=== PATIENT | male | born 1975 | race Caucasian/White ===

== ENCOUNTER 2019-11-26 12:12 | Outpatient (CLI) | payer BC, SELFPAY ==
[2019-11-27 14:11] LABS: SARS-CoV-2 RNA PCR Positive
== END 2019-11-26 12:13 | disposition home or self-care (01) ==
LOC: CHSLAB 12:15
PROVIDERS: PCP Internal Medicine; Visit Provider Internal Medicine
DX: U07.1 COVID-19 (principal)
CPT/HCPCS: 87635; C9803; U0003

== ENCOUNTER 2019-12-10 12:07 | Outpatient (CLI) | payer BC, SELFPAY ==
[2019-12-11 12:44] LABS: SARS-CoV-2 RNA PCR Positive
== END 2019-12-10 12:08 | disposition home or self-care (01) ==
LOC: CHSLAB 12:09
PROVIDERS: PCP Internal Medicine; Visit Provider Internal Medicine
DX: U07.1 COVID-19 (principal)
CPT/HCPCS: 87635; C9803; U0003

== ENCOUNTER 2020-01-16 07:26 | Outpatient (CLI) | payer BC, SELFPAY ==
--- NOTE | ~2020-01-16 | CT_ITS ---
EXAMINATION: CT abdomen pelvis w con DATE: 01/16/2020 08:02 INDICATION: Lower abdominal pain for 2 weeks TECHNIQUE: Computed tomography (CT) of the abdomen and pelvis was performed with 100 cc Omnipaque 350 intravenous contrast. The dose-length product was 377.77 mGy-cm. Automated exposure control and iter ative reconstruction technique were employed. COMPARISON: CT dated 05/10/2017 FINDINGS: Lung bases are unremarkable. Heart size normal. No significant pleural or pericardial effus ion. There are small hypodense lesions of the liver, most likely benign cysts or hemangiomas. The spl een, pancreas, adrenal glands and right kidney are unremarkable. There is a subtle hypodense lesion o f the left kidney which is stable, likely benign cyst. There is a small nonobstructing left renal sto ne measuring 2-3 mm. There is moderate retained fecal material in the distal colon. Distal colonic wa ll thickening. Cannot exclude colitis. No free air or free fluid. No significant vascular abnormality . No lymphadenopathy. IMPRESSION: 1. Mild distal colonic wall thickening. Consider colitis in the appropriate clinical setting. 2: Nonobstructing 2-3 mm left renal stone. Reviewed, dictated and finalized at location A. NCIAL SERVICES MANAGER IMPRESSION: 1. Mild distal colonic wall thickening. Consider colitis in the appropriate cli nical setting. 2: Nonobstructing 2-3 mm left renal stone.
== END 2020-01-16 07:27 | disposition home or self-care (01) ==
LOC: CHSIMG 07:27
PROVIDERS: PCP Internal Medicine; Visit Provider Internal Medicine
DX: R10.32 Left lower quadrant pain (principal); R19.7 Diarrhea, unspecified
CPT/HCPCS: 74177; Q9965

== ENCOUNTER 2020-03-08 06:13 | Outpatient (CLI) | payer BC, SELFPAY ==
[2020-03-09 14:05] LABS: SARS-CoV-2 RNA PCR Negative
== END 2020-03-08 06:14 | disposition home or self-care (01) ==
PROVIDERS: PCP Internal Medicine; Visit Provider Internal Medicine Gastroenterology
DX: Z20.822 Contact with and (suspected) exposure to COVID-19 (principal)
CPT/HCPCS: C9803; U0003; U0005

== ENCOUNTER 2020-03-11 02:48 | Day surgery (SDC) | payer BC, SELFPAY ==
[2020-03-04 13:44] VITALS: BMI 23.8
--- NOTE | 2020-03-09 15:35 | P.PNAN_ITS ---
Anes - Initial Pre Proc Eval Procedure: Operation Date: 03/11/20 07:30 Proposed Procedures p Esophagogastroduodenoscopy & Colonoscopy - Raz Garcia MD Date/Time: 03/09/20 15:35 Surgeon: Raz Garcia MD Pre Op Diagnosis: IBS, Abn Findings on Imaging, GERD Patient Data Age: 44 Gender: M Height: 1.88 m Weight: 84 kg Allergies Allergy/AdvReac Type Severity Reaction Status Date / Time No Known Allergies Allergy Verified 03/11/20 06:22 Home Medications Medication Instructions Recorded Confirmed Type atorvastatin 20 mg tablet 20 mg PO DAILY 03/01/20 03/11/20 History buspirone 10 mg tablet 10 mg PO BID 03/01/20 03/11/20 History famotidine 20 mg tablet 20 mg PO BID tablet 03/01/20 03/11/20 History hyoscyamine sulfate 0.125 mg tablet 0.125 mg PO QID PRN 03/01/20 03/11/20 History Patient hx anesthesia problems: none Family hx anesthesia problems: none [facility] Past Medical History Medical History (Updated 03/09/20 @ 15:35 by Louie Carroll DO) Abnormal CT scan, colon Anxiety GERD (gastroesophageal reflux disease) Hyperlipidemia Irritable bowel syndrome with diarrhea Social History Social History (Updated 03/01/20 @ 15:02 by Tamhina King [facility]) Smoking status: Former smoker Alcohol intake: current Drinks per week: 3 Substance use: never Substance use type: marijuana Living arrangements: with family Gender identity (if verbalized by the patient): Male Spiritual care concerns: No Anes - Eval Final PreProcedure Day of Procedure 03/09/20 15:35 Patient weight: normal Heart: regular rate and rhythm Lungs: clear to auscultation and normal air movement Airway: Mallampati scale class II Neurological: alert and oriented Last oral intake: >/= 8 hours ASA classification: III Emergent: no Anesthetic plan: proceed Anesthesia type and monitoring: general GIVS and standard monitoring Informed Consent: The patient's anesthetic plan and its attendant risks and benefits were discussed with the patient/family/POA. Questions were solicited and answers provided to the satisfaction of the patient/family/POA.
[2020-03-11 06:23] VITALS: BP 135/94; PULSE 62; RESP 18; TEMP 36.4; O2SAT 100; BMI 22.6
[2020-03-11] MEDS: LACTATED RINGERS 1,000 ML 150 ML IV CONT (06:33)
--- NOTE | 2020-03-11 07:37 | WPDHPUPDATE1 ---
History and Physical Update Update Date/Time: 03/11/20 07:37 History and Physical has been reviewed, including an updated exam of the patient. There are NO changes in the patient's condition. Risks, benefits, and alternatives have been discussed and questions answered. Patient agrees to proceed with procedure.
[2020-03-11] MEDS: BENZOCAINE (*SP) 60 ML SPRAY CAN (HURRICAINE) 1 SPRAY MUCOUS MEM (07:40)
[2020-03-11 08:00] VITALS: BP 113/66; PULSE 55; RESP 22; O2SAT 99
--- NOTE | 2020-03-11 08:00 | SUR.OPER ---
EGD START 740, END 743 COLONOSCOPY START 747, END 756
[2020-03-11 08:10] VITALS: BP 124/89; PULSE 63; RESP 24; O2SAT 100
== END 2020-03-11 08:34 | disposition home or self-care (01) ==
PROVIDERS: PCP Internal Medicine; Visit Provider Internal Medicine Gastroenterology
PROC: 0DJ08ZZ Inspection of Upper Intestinal Tract, Via Natural or Artificial Opening Endoscopic (ICD-10-PCS; CPT 43235; principal; 2020-03-11 07:30)
DX: K58.9 Irritable bowel syndrome, unspecified (principal); K30 Functional dyspepsia; R14.3 Flatulence; K64.8 Other hemorrhoids; K21.9 Gastro-esophageal reflux disease without esophagitis; F41.9 Anxiety disorder, unspecified; E78.5 Hyperlipidemia, unspecified; R93.5 Abnormal findings on diagnostic imaging of other abdominal regions, including retroperitoneum; Z87.891 Personal history of nicotine dependence; F12.90 Cannabis use, unspecified, uncomplicated; R93.3 Abnormal findings on diagnostic imaging of other parts of digestive tract
CPT/HCPCS: 43239; 45380; 88305; J2001; J2704; J7120

== ENCOUNTER 2020-04-26 23:25 | Emergency (ER) | payer BC, SELFPAY ==
--- NOTE | ~2020-04-26 | XR_ITS ---
EXAMINATION: XR chest 2V DATE: 04/27/2020 01:00 INDICATION: Dyspnea. TECHNIQUE: Frontal and lateral views of the chest were obtained on 3 radiographs. COMPARISON: Chest 2 views 03/11/2019, CT abdomen and pelvis 01/16/2020 FINDINGS: The chest demonstrates clear lungs without pneumonia, pleural effusion, or pneumothorax. Th e heart size is normal. There is mild chronic anterior wedging of multiple vertebral bodies. IMPRESSION: 1. No acute cardiopulmonary disease. Reviewed, dictated and finalized at location A.
[2020-04-26 23:25] VITALS: BP 160/102; PULSE 83; RESP 20; TEMP 36.3; O2SAT 98
--- NOTE | 2020-04-26 23:32 | ECG_ITS ---
Measurements Intervals [place] Rate: 87 P: 76 ID: 128 QRS: 74 QRSD: 102 T: 47 QT: 345 QTc: 415 Interpretive Statements SINUS RHYTHM VOLTAGE CRITERIA FOR LVH MINIMAL Q WAVES- INF/LAT LEADS BORDERLINE ST-T WAVE ABNORMALITY- DIFFUSE LEADS BASELINE ARTIFACT- I, II, III, AVR, AVL, AVF, V1, V3-V5 BORDERLINE ECG Electronically Signed On 04-27-2020 7:16:35 CDT by Lj Curry D.O.
--- NOTE | 2020-04-26 23:34 | ED.SOB ---
HPI - SOB/Dyspnea General Chief Complaint: Shortness of Breath/Dyspnea Stated Complaint: Shortness of Breath Time Seen by Provider: 04/26/20 23:34 History of Present Illness HPI Narrative: 44-year-old man with a history of HLD, IBS and COPD comes in today complaining of discomfort in his chest and shortness of breath when he lies down at night time. States he has been having able to sleep through the night for several days. He states his symptoms got worse after he started taking steroids for his back pain. He also complains of nausea, and feeling sweaty. He is also diarrhea. He denies daytime shortness of breath, fever, chills, cough or cold symptoms, and rash. A finger oximeter at home showed 90% while lying down. MD elicited complaint: shortness of breath, chest pain and anxiety Pertinent past history: COPD Onset (ago): day(s) (3-4) Timing: intermittent Severity: moderate Exacerbating factors: lying flat Relieving factors: nothing Known history of: COPD Associated symptoms: chest pain, diaphoresis and nausea/vomiting Related Data Home oxygen amount: none Home Medications Medication Instructions Recorded Confirmed atorvastatin 20 mg tablet 20 mg PO DAILY 03/01/20 04/26/20 Allergies Allergy/AdvReac Type Severity Reaction Status Date / Time No Known Allergies Allergy Verified 03/11/20 06:22 Review of Systems Constitutional: Constitutional: Denies chills and Denies fever(s) Eyes: Eyes: Denies change in vision and Denies photophobia ENT: Denies dysphagia, Denies nasal congestion and Denies sore throat Cardiovascular: Cardiovascular: Reports chest pain and Denies radiating jaw, neck or arm pain Respiratory: Respiratory: Denies chest congestion, Denies cough, Reports dyspnea and Denies wheezing Gastrointestinal: Gastrointestinal: Denies abdominal pain, Reports nausea and Denies vomiting Genitourinary: Genitourinary: Denies dysuria and Denies urinary frequency Musculoskeletal: Musculoskeletal: Denies arthralgias and Denies joint swelling Integumentary/Breasts: Skin/Breast: Denies pruritus, Denies erythema and Denies rash Neurologic: Denies vertigo, Denies dizziness and Denies syncope Hematologic/Lymphatic: Hematologic/Lymphatic: Denies easy bleeding and Denies easy bruising Allergic/Immunologic: Allergic/Immunologic: Denies lip swelling and Denies throat swelling [facility] Past Medical History Medical History Abnormal CT scan, colon Anxiety GERD (gastroesophageal reflux disease) Hyperlipidemia Irritable bowel syndrome with diarrhea Social History Social History Smoking status: Former smoker Alcohol intake: current Drinks per week: 3 Substance use: never Substance use type: marijuana Gender identity (if verbalized by the patient): Male Spiritual care concerns: No Exam Const: General: healthy appearing and alert Orientation/consciousness: patient oriented x3 Limitations: no limitations Other: anxious HENMT: Head: normal to inspection Ears: external ears normal and TM's normal bilaterally General nose exam: Normal nares present Face and sinus: normal facial exam Mouth: Yes moist mucous membranes Throat: posterior oropharynx normal Eyes: Conjunctivae: conjunctivae normal Pupils: Equal, round and reactive pupils present EOM: EOMs intact bilaterally Resp: Effort & Inspection: normal respiratory effort and not labored Auscultation: clear to auscultation bilaterally, no rales, no rhonchi and no wheezes Cardio: Rate: regular rate Rhythm: regular rhythm Heart sounds: no murmurs GI: GI Palp: No abdominal tenderness, Yes Soft to palpation and No Rigid due to palpation Skin: General skin exam: normal color, no jaundice and no pallor Rashes: no rashes Neuro: General: patient oriented x3, moves all extremities, no focal motor deficits and CN's II-XI intact bilaterally Spe
[2020-04-26 23:44] VITALS: PULSE 82
[2020-04-27 00:01] VITALS: BP 179/94; PULSE 84; RESP 20; O2SAT 99
[2020-04-27 00:06] LABS: Base Excess ABG 0.9 mmol/L (0-2); Carboxyhemoglobin 0.3 % (0-1.5); HCO3 ABG 22.8 mmol/L (23-29); Methemoglobin ABG 0.2 % (0-1.5); Oxygen Content ABG 21.6 %vol (16.0-22.0); Oxygen Saturation ABG 98.1 % (95-97); Oxyhemoglobin 97.6 % (94-100); PCO2 ABG 29.7 mmHg (35-45); PO2 ABG 102.3 mmHg (80-90); Reduced Hemoglobin 1.9 % (0-1.5); Total Hemoglobin 15.7 g/dL
[2020-04-27 00:11] LABS: Basophils Absolute Auto 0.03 K/mm3 (0.00-0.10); Basophils Percent Auto 0.3 % (0.0-1.0); Eosinophils Absolute Auto 0.03 K/mm3 (0.02-0.50); Eosinophils Percent Auto 0.3 % (1.0-6.0); Hematocrit 45.2 % (40.0-54.0); Hemoglobin 15.3 g/dL (14.0-18.0); Immature Granulocyte Absolute 0.03 K/mm3 (0.00-0.00); Immature Granulocyte Percent A 0.3 % (0.0-0.0); Lymphocytes Absolute Auto 2.54 K/mm3 (1.10-4.50); Lymphocytes Percent Auto 27.3 % (18.0-42.0); Mean Corpuscular HGB Conc 33.8 g/dL (32.0-36.0); Mean Corpuscular Hemoglobin 29.5 pg (27.0-31.0); Mean Corpuscular Volume 87.3 fL (78.0-102.0); Mean Platelet Volume 9.5 fl (8.7-11.0); Monocytes Absolute Auto 0.72 K/mm3 (0.10-0.90); Monocytes Percent Auto 7.7 % (2.0-11.0); Neutrophils Percent Auto 64.1 % (50.0-70.0); Platelet Count Result 277 K/mm3 (150-420); Red Blood Count 5.18 M/mm3 (4.70-6.10); Red Cell Distribution Width 11.9 % (11.6-14.4); White Blood Count 9.3 K/mm3 (4.8-10.8)
[2020-04-27 00:13] LABS: Device ROOM AIR; Modified Allen's Test Pass; Site Drawn RIGHT RADIAL
[2020-04-27 00:27] LABS: Add Urine Microscopic? YES; Appearance Urine Clear (Clear); Bilirubin Urine Negative (Negative); Blood Urine Negative (Negative); Color Urine Yellow (Yellow); Glucose Urine UA Negative (Negative); Ketones Urine Trace (Negative); Leukocyte Esterase Ur Negative LEU/UL (Negative); Nitrate Urine Negative (Negative); Protein Urine Negative (Negative); Specific Grav Ur 1.025 (1.010-1.020); Urobilinogen Urine 0.2 mg/dL (0.2-1.0)
[2020-04-27 00:27] LABS: BNP 6.7 pg/mL (0-100)
[2020-04-27 00:28] LABS: Alanine Aminotransferase 33 U/L (16-63); Alkaline Phosphatase 91 U/L (46-116); Anion Gap 11 mmol/L (8-16); Aspartate Amino Transferase 13 U/L (15-37); Blood Urea Nitrogen 10 mg/dL (7-18); Calcium 9.1 mg/dL (8.5-10.1); Carbon Dioxide 26 mmol/L (21-32); Chloride 99 mmol/L (98-108); Estimated CRCL calculation 93 ml/min; Estimated Glomerular Filt Rate > 60; Glucose 124 mg/dL (70-99); Osmolality Calculated 282 mOsm/kg (285-295); Potassium 3.2 mmol/L (3.5-5.1); Sodium 136 mmol/L (136-145); Total Protein 7.1 g/dL (6.4-8.2)
[2020-04-27 00:33] LABS: Bacteria Urine Trace /hpf; Mucus Urine Few /lpf; RBC Urine 0-2 /hpf (0-2); Squamous Epithelial Cell Urine None seen /hpf (Few); WBC Urine 0-3 /hpf (0-3)
[2020-04-27 00:34] LABS: Amphetamine Screen Urine Negative (Negative); Barbiturate Screen Urine Negative (Negative); Benzodiazepines Screen Urine Negative (Negative); Cannabinoid Screen Urine Positive (Negative); Cocaine Screen Urine Negative (Negative); Methadone Screen Urine Negative (Negative); Opiate Screen Urine Negative (Negative); Phencyclidine Screen Urine Negative (Negative)
[2020-04-27 00:34] LABS: D Dimer 0.19 mg/L (0.19-0.50)
[2020-04-27 00:36] VITALS: BP 165/99; PULSE 61; RESP 20; TEMP 36.3; O2SAT 97
[2020-04-27 01:05] LABS: Thyroid Stimulating Hormone Reflex 0.61 u/IU/mL (0.36-3.74)
[2020-04-27 17:50] LABS: Free T4 Free Thyroxine 1.49 ng/dL (0.76-1.46); Magnesium 1.8 mg/dL (1.8-2.4)
[2020-04-27 18:12] LABS: Free T3 3.35 pg/mL (2.18-3.98)
== END 2020-04-27 01:06 | disposition home or self-care (01) ==
PROVIDERS: Emergency Provider Emergency Medicine; PCP Internal Medicine
DX: G47.00 Insomnia, unspecified (principal); R06.01 Orthopnea
CPT/HCPCS: 36415; 36600; 71046; 80053; 80307; 81001; 82375; 82805; 83050; 83735; 83880; 84439; 84443; 84481; 84484; 85025; 85380; 93005; 99283; 99284

== ENCOUNTER 2020-04-27 13:54 | Outpatient (CLI) | payer BC, SELFPAY ==
--- NOTE | 2020-05-26 09:39 | WPDHOLTEREM ---
Holter/Event Monitor Holter/Event Monitor Date of procedure: 04/27/20 Procedure Type: Event monitor Indications: Palpitations Conclusion: 1. 26 days event monitor between 04/27/20-05/26/20. There are 11 available strips for analysis. 2. Predominant rhythm is sinus rhythm. HR range 37-122 bpm; average HR 68 bpm. 3. There are occasional premature supraventricular complexes with total burden of <1%. There are 2 episodes of ectopic atrial or accelerated junctional tachycardia on 04/28/20 at 02:40 at 122 bpm and on 05/17/20 at 04:22. 4. There are occasional premature ventricular complexes with total burden of 1%. No ventricular tachycardia. 5. No significant pauses greater than 2 seconds. 6. Patient reports one episode of symptom of symptom other than listed which demonstrate sinus rhythm at 83 bpm.
== END 2020-04-27 13:55 | disposition home or self-care (01) ==
LOC: CHSLAB 13:55
PROVIDERS: PCP Internal Medicine; Visit Provider Internal Medicine
DX: R00.2 Palpitations (principal)
CPT/HCPCS: 93270

== ENCOUNTER 2020-10-31 11:37 | Outpatient (CLI) | payer BC, SELFPAY ==
--- NOTE | ~2020-10-31 | XR_ITS ---
EXAMINATION: XR lumbar spine 2-3V EXAM DATE: 10/31/2020 12:05 INDICATION: Chest pain, back pain . TECHNIQUE: Lumber spine frontal, lateral, lateral L5-S1 projections for interpretation. Comparison is made to prior examination from 05/11/2017. FINDINGS: Evidence of mild lumbar disc disease, more apparent than on prior study. There is mild lumb ar facet arthropathy. There are no acute fractures identified. Sacrum, sacroiliac joints, sacral arcu ate lines are intact. The vertebral bodies are aligned in the AP dimension. Paraspinal soft tissue is unremarkable. There are no bony erosions identified. IMPRESSION: 1. Mild lumbar spondylosis. Reviewed, dictated and finalized at location B. IMPRESSION: 1. Mild lumbar spondylosis.
--- NOTE | ~2020-10-31 | XR_ITS ---
EXAMINATION: XR thoracic spine 3V EXAM DATE: 10/31/2020 12:05 INDICATION: Left-sided back pain. TECHNIQUE: Frontal and lateral projections of the thoracic spine as well as lateral swimmers projecti on of the upper thoracic spine for interpretation. There is no prior study for comparison. FINDINGS: There is mild mid thoracic disc disease. There are no acute fractures identified. The vert ebral bodies are aligned in the AP dimension. Paraspinal soft tissue is unremarkable. IMPRESSION: Mild mid thoracic spondylosis. Reviewed, dictated and finalized at location B.
--- NOTE | ~2020-10-31 | XR_ITS ---
EXAMINATION: XR_CERV2-3V_CR EXAM DATE: 10/31/2020 12:04 INDICATION: Neck pain, left-sided. TECHNIQUE: Cervical spine frontal, lateral, open-mouth odontoid projections. There is no prior stud y for comparison. FINDINGS: There is no evidence of acute cervical fracture. The odontoid process is intact. Pre-dens space is normal. Prevertebral soft tissue is normal. There are no soft tissue abnormalities identi fied. There is moderate loss of the C6-7 disc height, but with only mild bony productive change. The re is evidence of mild cervical and uncovertebral joint arthropathy. The vertebral bodies are align ed. IMPRESSION: Mild to moderate cervical spondylosis. Reviewed, dictated and finalized at location B.
--- NOTE | ~2020-10-31 | XR_ITS ---
EXAMINATION: XR chest 2V 10/31/2020 12:04 INDICATION: Chest pain PROCEDURE: 2 view chest COMPARISON: Comparison to multiple prior studies sequentially, with oldest reviewed study dated 03/26. FINDINGS: The lungs are clear. The cardiomediastinal silhouette is within normal limits. There are no pleural effusions. There is no pneumothorax suspected. IMPRESSION: 1: NO ACUTE CARDIOPULMONARY DISEASE. Reviewed, dictated and finalized at location A.
== END 2020-10-31 11:38 | disposition home or self-care (01) ==
LOC: CHSIMG 11:40
PROVIDERS: PCP Internal Medicine; Visit Provider Internal Medicine
DX: R07.9 Chest pain, unspecified (principal); M54.9 Dorsalgia, unspecified
CPT/HCPCS: 71046; 72040; 72072; 72100

== ENCOUNTER 2020-12-05 13:50 | Outpatient (CLI) | payer BC, SELFPAY ==
--- NOTE | ~2020-12-05 | US_ITS ---
EXAMINATION: US retroperitoneal comp EXAM DATE: 12/05/2020 14:07 INDICATION: Hematuria. TECHNIQUE: Multiple grayscale and Doppler images of the kidneys were obtained (by a technologist who performed the scan) and subsequently reviewed. There is no prior study for comparison. FINDINGS: Right kidney: There is normal contour and echogenicity. It measures 10.3 x 4.7 x 4.7 centimeters. T here are no focal renal lesions identified. There is no hydronephrosis. Left kidney: There is normal contour and echogenicity. It measures 10.7 x 5.4 x 4.6 centimeters. Th ere are no focal renal lesions identified. There is no hydronephrosis. Bladder unremarkable. Prostate normal in size. IMPRESSION: 1. Sonographically unremarkable kidneys. Reviewed, dictated and finalized at location B.
== END 2020-12-05 13:51 | disposition home or self-care (01) ==
LOC: CHSIMG 13:51
PROVIDERS: PCP Internal Medicine; Visit Provider Internal Medicine
DX: R31.9 Hematuria, unspecified (principal)
CPT/HCPCS: 76770

== ENCOUNTER 2021-01-19 18:37 | Emergency (ER) | payer BC, SELFPAY ==
[2021-01-19 18:45] VITALS: BP 163/91; PULSE 97; RESP 20; TEMP 36.6; O2SAT 100
--- NOTE | 2021-01-19 18:58 | ED.MALEGU ---
HPI - Male Genitourinary General Chief complaint: Urogenital-Male Stated complaint: pain and blue line on testicle Source: patient Mode of arrival: ambulatory Limitations: no limitations History of Present Illness HPI Narrative: this is a 45-year-old gentleman that presents with some testicular pain no known trauma no swelling of the testicles does feel there is an aching and pain that he rates a 7/10 has been there for the last couple days, with clear discharge the patient has had unprotected high-risk sex about a month ago patient says he was tested in his primary care physician's office. Currently no fever chills no testicular swelling no redness no erythema no nausea vomiting no abdominal pain. MD Complaint: testicle pain Onset (ago): day(s) Duration: intermittent Location: right testicle and left testicle Severity: moderate Severity scale (1-10): 7 Quality: aching Relieving factors: none Exacerbating factors: none Related Data Allergies Allergy/AdvReac Type Severity Reaction Status Date / Time No Known Allergies Allergy Verified 12/22/20 08:57 Review of Systems Review of Systems: All systems reviewed & are unremarkable except as noted in HPI and below PMFSH Past Medical History Medical History Abnormal CT scan, colon Anxiety GERD (gastroesophageal reflux disease) Hyperlipidemia Irritable bowel syndrome with diarrhea Family History Family History Mother Hypertension Social History Social History Smoking packs per day: 1 Smoking cigarettes per day: 20.0 Years smoked: 22 Smoking pack-years: 22.00 Smoking status: Former smoker Alcohol intake: current Drinks per week: 3 Substance use: never Substance use type: marijuana Gender identity (if verbalized by the patient): Male Spiritual care concerns: No Exam Const: General: no acute distress and alert HENMT: Head: normal to inspection Eyes: Conjunctivae: conjunctivae normal Pupils: Equal, round and reactive pupils present Neck: Neck: normal visual inspection, no lymphadenopathy and no meningeal signs Chest: Chest palpation & inspection: normal inspection of the chest Resp: Effort & Inspection: normal respiratory effort Auscultation: clear to auscultation bilaterally Cardio: Rate: regular rate Rhythm: regular rhythm GI: GI Palp: Yes Soft to palpation : General: No bladder normal to palpation, No Bladder palpation abnormal, No CVA tenderness and No no CVA tenderness Male General Exam: No normal external exam and No Genital lesions present Penis: No normal penis, No circumcised and No uncircumcised Scrotum: scrotum normal and no scrotal swelling Testes: abnormal, abnormal epididymides, epididymal tenderness, no testicular swelling and no testicular tenderness Back/Spine/Pelvis: Back: no CVA tenderness Skin: General skin exam: normal color Rashes: no rashes Neuro: General: patient oriented x3, moves all extremities and no meningeal signs Psych: Mental Status: mental status grossly normal Affect: normal affect Attitude: cooperative Course Course Emergency Course: Will check a [facility] and administer a g of ceftriaxone and a g of Zithromax and will send Bactrim to patient's pharmacy that he can take twice daily for 1 week Critical Care Time Critical Care Time Critical Care Time: No Discharge Plan Discharge Clinical Impression: Epididymitis Patient Disposition: Home, Self-Care Condition: Stable Instructions: Antibiotic Form, Epididymitis (ED) Additional Instructions: take medicine as prescribed and follow-up with primary care physician in 1 week further evaluation treatment Prescriptions: New sulfamethoxazole-trimethoprim [Bactrim DS] 800-160 mg tablet 1 tablet PO Q12H Qty: 14 RF: 0 Follow-up/Referrals: Veena Elizabeth MD [P
[2021-01-19] MEDS: KETOROLAC (*BKC) 60 MG/2 ML VIAL IM (19:07)
[2021-01-19] MEDS: cefTRIAXone 1 GM VIAL IM (19:08)
[2021-01-19] MEDS: AZITHROMYCIN 250 MG TABLET 1000 MG PO (19:08)
[2021-01-19] MEDS: LIDOCAINE HCL 1% LOCAL INJ 20 ML VIAL (19:31)
== END 2021-01-19 19:35 | disposition home or self-care (01) ==
PROVIDERS: Emergency Provider Emergency Medicine; PCP Internal Medicine
DX: N45.1 Epididymitis (principal)
CPT/HCPCS: 87491; 87591; 96372; 99283; 99284; A9270; J0696; J1885

== ENCOUNTER 2021-01-26 14:28 | Outpatient (CLI) | payer BC, SELFPAY ==
--- NOTE | ~2021-01-26 | US_ITS ---
EXAMINATION: US scrotum doppler EXAM DATE: 01/26/2021 15:06 INDICATION: Testicular and groin pain . TECHNIQUE: Multiple grayscale and Doppler images of the testicles and scrotum were obtained bilateral ly. There is no prior study for comparison. FINDINGS: Unremarkable left inguinal canal, no evidence of hernia or pathologically enlarged lymph no gloria. Right testicle measures 3.6 x 1.8 x 3.5 cm and is morphologically normal. Low resistance Doppler jeremias w confirmed. The epididymis is unremarkable. There is no hydrocele or varicocele. Left testicle measures 3.7 x 2.1 x 2.7 cm and is morphologically normal. Low resistance Doppler flow confirmed. The epididymis is unremarkable. Small varicocele. IMPRESSION: 1. Small left varicocele. 2. Sonographically unremarkable left groin. Reviewed, dictated and finalized at location B. TRICAL HELPER
== END 2021-01-26 14:29 | disposition home or self-care (01) ==
LOC: CHSIMG 14:29
PROVIDERS: PCP Internal Medicine; Visit Provider Internal Medicine
DX: N50.812 Left testicular pain (principal)
CPT/HCPCS: 76870; 93976

== ENCOUNTER 2021-02-16 17:35 | Outpatient (CLI) | payer BC, SELFPAY ==
[2021-02-16 17:48] LABS: Hematocrit 43.8 % (40.0-54.0); Hemoglobin 14.4 g/dL (14.0-18.0); Mean Corpuscular HGB Conc 32.9 g/dL (32.0-36.0); Mean Corpuscular Hemoglobin 30.6 pg (27.0-31.0); Mean Corpuscular Volume 93.2 fL (78.0-102.0); Mean Platelet Volume 8.9 fl (8.7-11.0); Platelet Count Result 247 K/mm3 (150-420); Red Cell Distribution Width 12.4 % (11.6-14.4)
[2021-02-16 18:37] LABS: Alanine Aminotransferase 33 U/L (16-63); Alkaline Phosphatase 79 U/L (46-116); Amylase 54 U/L (25-115); Anion Gap 8 mmol/L (8-16); Aspartate Amino Transferase 14 U/L (15-37); Bilirubin,Total 0.2 mg/dL (0.00-1.00); Blood Urea Nitrogen 15 mg/dL (7-18); Calcium 8.9 mg/dL (8.5-10.1); Carbon Dioxide 29 mmol/L (21-32); Chloride 103 mmol/L (98-108); Creatine Kinase 332 U/L (39-308); Estimated Glomerular Filt Rate 53; Glucose 105 mg/dL (70-99); Lipase 110 U/L (73-393); Osmolality Calculated 290 mOsm/kg (285-295); Potassium 4.5 mmol/L (3.5-5.1); Sodium 140 mmol/L (136-145); Thyroid Stimulating Hormone 0.35 uIU/mL (0.36-3.74); Total Protein 7.1 g/dL (6.4-8.2)
[2021-02-16 18:43] LABS: CRP < 0.2 mg/dL (0.0-0.9)
== END 2021-02-16 17:36 | disposition home or self-care (01) ==
LOC: CHSLAB 17:37
PROVIDERS: PCP Internal Medicine; Visit Provider Nurse Practitioner Family
DX: R07.9 Chest pain, unspecified (principal); R94.31 Abnormal electrocardiogram [ECG] [EKG]
CPT/HCPCS: 36415; 80053; 82150; 82550; 82553; 83690; 84443; 84484; 85027; 86140

== ENCOUNTER 2021-03-07 16:29 | Outpatient (CLI) | payer BC, SELFPAY ==
[2021-03-07 17:33] LABS: Anion Gap 10 mmol/L (8-16); Blood Urea Nitrogen 19 mg/dL (7-18); Calcium 9.1 mg/dL (8.5-10.1); Carbon Dioxide 28 mmol/L (21-32); Chloride 99 mmol/L (98-108); Creatine Kinase 259 U/L (39-308); Estimated Glomerular Filt Rate > 60; Glucose 106 mg/dL (70-99); Osmolality Calculated 286 mOsm/kg (285-295); Potassium 4.1 mmol/L (3.5-5.1); Sodium 137 mmol/L (136-145)
== END 2021-03-07 16:30 | disposition home or self-care (01) ==
PROVIDERS: PCP Internal Medicine; Visit Provider Internal Medicine
DX: M60.9 Myositis, unspecified (principal); E86.0 Dehydration
CPT/HCPCS: 36415; 80048; 82550

== ENCOUNTER 2021-03-30 16:00 | Outpatient (RCR) | payer BC, SELFPAY ==
--- NOTE | 2021-04-03 07:39 | PTOPEVAL ---
Thank you for referring Asim Anaya to [facility].? The patient is scheduled to be seen for therapy? __2__x/week for 8 visits. Please review, sign, date and return this plan of care KRISTOPHER. I agree with and certify that the following plan of care is medically necessary. Referring Physician Date Admitting Provider: Attending Provider: Veena Elizabeth MD Referring Provider: *PT Outpatient Evaluation Start: 03/30/21 16:39 Freq: Status: Active Protocol: Document 03/30/21 16:39 GO (Rec: 03/30/21 17:40 GO [id number]) Therapy Assessment Status Assessment Status Assessment Status Evaluation Outpatient Past Medical History Neurological History Hx Neurological Disorders No Significant History Cardiovascular History Hx Hypercholesterolemia Yes Respiratory History Hx Respiratory Disorders No Significant History Gastrointestinal History Hx Gastroesophageal Reflux Disease Yes Genitourinary History Hx Genitourinary Disorders No Significant History Musculoskeletal History Hx Orthopedic Surgery Yes: Right knee and ankle screws Hematological History Hx Hematological Disorders No Significant History Endocrine History Hx Endocrine Disorders No Significant History HEENT History Hx HEENT Disorders No Significant History Integumentary History Hx Skin Disorders No Significant History Reproductive History Hx Reproductive Disorders No Significant History Psychosocial History Hx Anxiety Yes Hx Depression Yes Pain History History of Any Previous or Ongoing No Significant History Instance of Pain Anesthesia History Hx Anesthesia Reactions No Significant History Evaluation Information Problem Diagnosis lumbar radiculopathy Onset 03/22/21 Subjective Information Pt. reports that he has had on Query Text:As Reported By Patient/ /off back pain for several Family years. He reports that he has back pain in both the upper back and lower back. He reports that he does not recall one specific incident that brought on the pain, however describes several incidents that could have resulted in the pain. He has done chiropractic with only temporary relief. He reports that he is scheduled for an MRI this weekend for his low back, but expresses concern
== END 2021-04-25 14:13 | disposition home or self-care (01) ==
LOC: CHSPT 16:00
PROVIDERS: PCP Internal Medicine; Visit Provider Internal Medicine
DX: M54.16 Radiculopathy, lumbar region (principal)
CPT/HCPCS: 97012; 97014; 97110; 97140; 97161; G0283

== ENCOUNTER 2021-04-01 09:56 | Outpatient (CLI) | payer BC, SELFPAY ==
--- NOTE | ~2021-04-01 | MR_ITS ---
EXAMINATION: MR lumbar spine wo [facility] EXAM DATE: 04/01/2021 10:59 INDICATION: Lumbar radiculopathy, low back and left leg pain. TECHNIQUE: Multi-sequential, multiplanar MR images of the lumbar spine were obtained without contrast . Sagittal T1, T2, T2 fat saturation images. Axial T2 weighted images. Comparison is made to prior examination from 05/11/2017. FINDINGS: There is mild to moderate disc disease L5-S1, mild at L3-4. The conus medullaris terminates at the L1/2 level and has normal signal intensity and morphology. The vertebral bodies are aligned in the AP dimension. There are no suspicious marrow signal abnormalities. Paraspinal soft tissue is u nremarkable. Level by level evaluation: T12-L1: Disc does not extend beyond the endplate margin. Facet arthropathy: None. Neural foraminal stenosis: No stenosis. Central canal stenosis: No stenosis. L1-L2: Disc does not extend beyond the endplate margin. Facet arthropathy: None. Neural foraminal stenosis: No stenosis. Central canal stenosis: No stenosis. L2-L3: Disc does not extend beyond the endplate margin. Facet arthropathy: None. Neural foraminal stenosis: No stenosis. Central canal stenosis: No stenosis. L3-L4: There is a minimal diffuse disc bulge. Facet arthropathy: Minimal. Neural foraminal stenosis: No stenosis. Central canal stenosis: No stenosis. L4-L5: There is a mild diffuse disc bulge. Facet arthropathy: Mild. Neural foraminal stenosis: Mild bilateral. Central canal stenosis: No stenosis. L5-S1: There is a mild diffuse disc bulge. Facet arthropathy: Mild. Neural foraminal stenosis: Mild to moderate bilateral. Central canal stenosis: No stenosis. Minimal progression compared to 2018. IMPRESSION: Overall mild lumbar spondylosis. Reviewed, dictated and finalized at location A. SACTION COORDINATOR
== END 2021-04-01 09:57 | disposition home or self-care (01) ==
LOC: CHSIMG 09:57
PROVIDERS: PCP Internal Medicine; Visit Provider Internal Medicine
DX: M54.16 Radiculopathy, lumbar region (principal)
CPT/HCPCS: 72148

== ENCOUNTER 2021-05-06 07:19 | Outpatient (CLI) | payer BC, SELFPAY ==
--- NOTE | ~2021-05-06 | MR_ITS ---
EXAMINATION: MR cervical spine wo con EXAM DATE: 05/06/2021 08:31 INDICATION: Radicular pain. TECHNIQUE: Multi-sequential, multiplanar MR images of the cervical spine were obtained without contra st. Axial T2, axial T2 MERGE sequence. Sagittal T1, T2, T2 fat saturation images also obtained. Th ere is no prior study for comparison. FINDINGS: There is mild to moderate loss of the C6-7 disc height. The vertebral body and disc height s are otherwise well maintained. The spinal cord signal intensity and intrinsic morphology is normal. Cervicomedullary junction is normal in appearance. There are no suspicious marrow signal abnormaliti es. Paraspinal soft tissue is unremarkable. Level by level evaluation: C2-C3: Disc does not extend beyond the endplate margin. Uncovertebral joint arthropathy: None. Facet joint arthropathy: None. Neural foraminal stenosis: No stenosis. Central canal stenosis: No stenosis. C3-C4: Disc does not extend beyond the endplate margin. Uncovertebral joint arthropathy: None. Facet joint arthropathy: Mild bilateral. Neural foraminal stenosis: No stenosis. Central canal stenosis: No stenosis. C4-C5: Disc does not extend beyond the endplate margin. Uncovertebral joint arthropathy: None. Facet joint arthropathy: Mild bilateral. Neural foraminal stenosis: No stenosis. Central canal stenosis: No stenosis. C5-C6: Disc does not extend beyond the endplate margin. Uncovertebral joint arthropathy: Mild bilateral. Facet joint arthropathy: Mild bilateral. Neural foraminal stenosis: Minimal bilateral. Central canal stenosis: No stenosis. C6-C7: There is a mild diffuse disc bulge. Uncovertebral joint arthropathy: Moderate right, moderate left. Facet joint arthropathy: Mild bilateral. Neural foraminal stenosis: Moderate to severe right, moderate left. Central canal stenosis: Mild. C7-T1: Disc does not extend beyond the endplate margin. Uncovertebral joint arthropathy: None. Facet joint arthropathy: Mild bilateral. Neural foraminal stenosis: No stenosis. Central canal stenosis: No stenosis. IMPRESSION: C6-7 moderate to severe right neural foraminal stenosis. Otherwise relatively mild cervic al spondylosis. Reviewed, dictated and finalized at [facility]. IMPRESSION: C6-7 moderate to severe right neural foraminal stenosis. Otherwise relatively mild cervical spondylosis.
== END 2021-05-06 07:20 | disposition home or self-care (01) ==
LOC: CHSIMG 07:20
PROVIDERS: PCP Internal Medicine; Visit Provider Nurse Practitioner Family
DX: M54.12 Radiculopathy, cervical region (principal)
CPT/HCPCS: 72141

== ENCOUNTER 2021-07-21 16:08 | Outpatient (CLI) | payer BC, SELFPAY ==
--- NOTE | ~2021-07-21 | CT_ITS ---
EXAMINATION: CT abdomen pelvis wo con DATE: 07/21/2021 16:26 INDICATION: Left sided abdominal pain, diarrhea TECHNIQUE: Computed tomography (CT) of the abdomen and pelvis was performed without intravenous contr ast. Automated exposure control and iterative reconstruction technique were employed. Exam dose: 364 .89 mGy-cm total exam DLP. COMPARISON: 01/16/2020 CT abdomen pelvis FINDINGS: The lung bases are clear. Normal heart size. No pericardial or pleural effusion. 1.3 cm lateral segment left hepatic cyst. Occasional probable much smaller hepatic cysts. The gallbla dder is present. No bile duct or pancreatic duct dilatation. No pancreatic mass lesion or calcificati on. Normal splenic size. Normal morphology of the adrenal glands. There is a pinpoint nonobstructing lower pole left renal calculus. No other urinary tract calculus or hydroureteronephrosis is evident. No renal space occupying mass lesion is evident. The urinary bladd er is unremarkable. There is mild prostate enlargement and calcification. Normal caliber of the abdominal aorta. No intraperitoneal or retroperitoneal or pelvic mass lesion or adenopathy or ascites. Normal appendix. No bowel obstruction or intraperitoneal free air. Small fat-containing umbilical hernia. No suspicious osteolytic or osteoblastic lesions are noted. Moderate degenerative disc disease at L5- S1. IMPRESSION: Pinpoint nonobstructing lower pole left renal calculus Several probable up to 1.3 cm hepatic cysts Reviewed, dictated and finalized at [facility]. Reviewed, dictated and finalized at [facility].
== END 2021-07-21 16:09 | disposition home or self-care (01) ==
LOC: CHSIMG 16:10
PROVIDERS: PCP Internal Medicine; Visit Provider Internal Medicine
DX: R10.32 Left lower quadrant pain (principal)
CPT/HCPCS: 74176